=== PATIENT | male | born 1970 | race Caucasian/White ===

== ENCOUNTER 2018-04-08 04:04 | Emergency (ER) | payer MEDICAID ==
[~2018-04-08] VITALS: Ht 165.1 cm; Wt 70.5 kg
[~2018-04-08 04:04] MED LIST: CETI10TA18 PO; HYDR-4383 PO
[2018-04-08] MEDS ORDERED: metoclopramide 5 mg/ml inj IV ONE (04:30)
[2018-04-08] MEDS ORDERED: diphenhydrAMINE 50 mg/ml inj IV ONE (04:30)
[2018-04-08] MEDS ORDERED: normal saline 1000ml 1,000 ML IV ONE (04:30)
[2018-04-08] MEDS ORDERED: ketorolac trometh. 30mg/ml inj. IV ONE (04:30)
[2018-04-08] MEDS ORDERED: acetaminophen 325mg tablet PO ONE (04:35)
[2018-04-08 05:37] VITALS: BP 119/76
[2018-04-08] MEDS ORDERED: TAM75C PO (05:50)
== END 2018-04-08 06:17 | disposition home or self-care (01) ==
LOC: ER 04:04
DX: J11.1 Influenza due to unidentified influenza virus with other respiratory manifestations (principal); R11.0 Nausea; R00.0 Tachycardia, unspecified; I10 Essential (primary) hypertension; F12.90 Cannabis use, unspecified, uncomplicated; F17.200 Nicotine dependence, unspecified, uncomplicated; Z88.8 Allergy status to other drugs, medicaments and biological substances; Z88.2 Allergy status to sulfonamides
CPT/HCPCS: 71045; 87502; 87503; 96374; 96375; 99285; J1200; J1885; J2765; J7030

== ENCOUNTER 2018-04-11 20:52 | Emergency (ER) | payer MEDICAID ==
[~2018-04-11] VITALS: Ht 165.1 cm; Wt 63.6 kg
[~2018-04-11 20:52] MED LIST changes: -CETI10TA18 PO; -HYDR-4383 PO; +TAM75C PO
[2018-04-11] MEDS ORDERED: predniSONE 20 mg tablet PO ONE (21:10)
[2018-04-11] MEDS ORDERED: ipratropium/albuterol 3ml nebule NEB ONE (21:10)
[2018-04-11] MEDS ORDERED: PRED10TA23 PO (21:12)
[2018-04-11] MEDS ORDERED: ALBU8.5H8 IH (21:12)
[2018-04-11] MEDS ORDERED: INHA1EAC68 MC (21:12)
[2018-04-11 21:59] VITALS: BP 129/92
== END 2018-04-11 22:00 | disposition home or self-care (01) ==
LOC: ER 20:53
DX: J40 Bronchitis, not specified as acute or chronic (principal); I10 Essential (primary) hypertension; F12.90 Cannabis use, unspecified, uncomplicated; Z79.2 Long term (current) use of antibiotics; Z79.899 Other long term (current) drug therapy
CPT/HCPCS: 93005; 94640; 94760; 99283; J7512

== ENCOUNTER 2018-07-11 08:16 | Emergency (ER) | payer MEDICAID ==
[~2018-07-11] VITALS: Ht 165.1 cm; Wt 70.5 kg
[~2018-07-11 08:16] MED LIST changes: +ALBU8.5H8 IH; +INHA1EAC68 MC; -TAM75C PO
[2018-07-11] MEDS ORDERED: ondansetron/PF 4mg/2ml inj IV ONE (09:00)
[2018-07-11] MEDS ORDERED: morphine 4 MG/ML inj SYRINge IV ONE (09:00)
[2018-07-11 09:32] LABS: CLARITY,URINE CLEAR (Clear); COLOR,URINE STRAW (Yellow); GLUCOSE, URINE NEGATIVE (Neg); KETONES,URINE NEGATIVE (Neg); LEUKOCYTE ESTERASE ,URINE NEGATIVE (Neg); NITRITES, URINE NEGATIVE (Neg); OCCULT BLOOD,URINE NEGATIVE (Neg); PH,URINE 6.5 (4.8-8.0); PROTEIN,URINE NEGATIVE (Neg); UROBILINOGEN,URINE 0.2 E.U/dL (0.2-1.0)
[2018-07-11 09:34] LABS: UA COLLECTION TYPE CLN CATCH MIDSTREAM
[2018-07-11 09:34] LABS: BASOPHILS % (AUTO) 0.6 % (0-1); EOSINOPHILS # (AUTO) 0.2 X10'3 (0-0.9); EOSINOPHILS % (AUTO) 3.7 % (0-6); HEMATOCRIT 46.1 % (42.0-52.0); HEMOGLOBIN 15.6 g/dl (14.0-17.9); LYMPHOCYTES # (AUTO) 1.5 X10'3 (1.1-4.8); LYMPHOCYTES % (AUTO) 22.6 % (21-51); MEAN CORPUSCULAR HEMOGLOBIN 30.5 PG (27.0-31.0); MEAN CORPUSCULAR HGB CONC 33.8 g/dL (33.0-36.5); MEAN CORPUSCULAR VOLUME 90.2 FL (78-98); MEAN PLATELET VOLUME 7.6 FL (7.4-10.4); MONOCYTES # (AUTO) 0.4 X10'3 (0-0.9); MONOCYTES % (AUTO) 6.2 % (2-12); NEUTROPHILS # (AUTO) 4.5 X10'3 (1.8-7.7); NEUTROPHILS % (AUTO) 66.9 % (42-75); PLATELET COUNT 288 X10'3 (140-440); RED BLOOD COUNT 5.11 X10'6 (4.70-6.10); RED CELL DISTRIBUTION WIDTH 12.5 % (11.5-14.5); WHITE BLOOD COUNT 6.6 X10'3 (4.5-11.0)
[2018-07-11 09:45] LABS: ALANINE AMINOTRANSFERASE 62 U/L (12-78); ALBUMIN 3.8 G/DL (3.4-5.0); ALBUMIN/GLOBULIN RATIO 1.1 (1.1-1.5); ALKALINE PHOSPHATASE 55 IU/L (46-116); ANION GAP 12 (8-16); ASPARTATE AMINO TRANSFERASE 26 U/L (10-37); BILIRUBIN,TOTAL 0.5 MG/DL (0.1-1.0); BLOOD UREA NITROGEN 12 MG/DL (7-18); BUN/CREATININE RATIO 14.3 (5.4-32.0); CALCIUM 8.9 MG/DL (8.5-10.1); CHLORIDE 103 MMOL/L (99-107); CREATININE 0.84 MG/DL (0.60-1.10); GLUCOSE 98 MG/DL (70-104); MAGNESIUM 1.8 MG/DL (1.5-2.4); PARTIAL THROMBOPLASTIN TIME 28 SECONDS (22-32); PROTHROMBIN TIME 9.9 SECONDS (9.0-12.0); SODIUM 140 MMOL/L (135-145); TOTAL CARBON DIOXIDE 24.9 MMOL/L (24-32); TOTAL PROTEIN 7.2 G/DL (6.4-8.2); eGFR > 90 ML/MIN
[2018-07-11] MEDS ORDERED: BUDE9TAB2 PO (11:40)
[2018-07-11 11:53] VITALS: BP 98/60
[2018-07-12] MEDS ORDERED: HYDR-3965 PO (00:46)
[2018-07-12] MEDS ORDERED: DICY10CA88 PO (00:46)
[2018-07-12] MEDS ORDERED: AMOX-580 PO (00:46)
== END 2018-07-11 11:57 | disposition home or self-care (01) ==
LOC: ER 08:17
DX: K52.9 Noninfective gastroenteritis and colitis, unspecified (principal); K62.5 Hemorrhage of anus and rectum; I10 Essential (primary) hypertension
CPT/HCPCS: 36415; 80053; 81003; 83605; 83735; 84145; 85025; 85610; 85730; 87040; 96374; 96375; 99283; J2270; J2405

== ENCOUNTER 2018-07-11 21:08 | Emergency (ER) | payer MEDICAID ==
[~2018-07-11] VITALS: Ht 165.1 cm; Wt 75.3 kg
[~2018-07-11 21:08] MED LIST changes: +BUDE9TAB2 PO
[2018-07-11] MEDS ORDERED: diphenhydrAMINE 50 mg/ml inj IV ONE (23:00)
[2018-07-11] MEDS ORDERED: metoclopramide 5 mg/ml inj IV ONE (23:00)
[2018-07-11] MEDS ORDERED: normal saline 1000ML IV soln IVB ONE ×2 (23:00)
[2018-07-11] MEDS ORDERED: HYDROmorphone inj. 0.5 MG/0.5 ML DISP.SYRIN IV PRN (23:00)
[2018-07-11] MEDS ORDERED: LORazepam 2 mg/ml vial IV ONE (23:00)
[2018-07-11] MEDS ORDERED: glycopyrrolate 0.2mg/ml inj IV ONE (23:05)
[2018-07-11 23:31] LABS: ALANINE AMINOTRANSFERASE 89 U/L (12-78); ALBUMIN 3.5 G/DL (3.4-5.0); ALKALINE PHOSPHATASE 56 IU/L (46-116); ANION GAP 9 (8-16); ASPARTATE AMINO TRANSFERASE 49 U/L (10-37); BILIRUBIN,TOTAL 0.3 MG/DL (0.1-1.0); BLOOD UREA NITROGEN 20 MG/DL (7-18); BUN/CREATININE RATIO 19.8 (5.4-32.0); CHLORIDE 102 MMOL/L (99-107); CREATININE 1.01 MG/DL (0.60-1.10); GLUCOSE 154 MG/DL (70-104); LIPASE 197 U/L (73-393); POTASSIUM 4.2 MMOL/L (3.5-5.1); SODIUM 138 MMOL/L (135-145); TOTAL PROTEIN 6.9 G/DL (6.4-8.2); eGFR 79 ML/MIN
[2018-07-11 23:46] LABS: BASOPHILS % (AUTO) 0.1 % (0-1); EOSINOPHILS % (AUTO) 0.1 % (0-6); HEMOGLOBIN 14.1 g/dl (14.0-17.9); LYMPHOCYTES % (AUTO) 13.2 % (21-51); MEAN CORPUSCULAR HEMOGLOBIN 29.9 PG (27.0-31.0); MEAN CORPUSCULAR HGB CONC 33.5 g/dL (33.0-36.5); MEAN CORPUSCULAR VOLUME 89.4 FL (78-98); MEAN PLATELET VOLUME 8.2 FL (7.4-10.4); MONOCYTES # (AUTO) 0.3 X10'3 (0-0.9); MONOCYTES % (AUTO) 4.2 % (2-12); NEUTROPHILS % (AUTO) 82.4 % (42-75); PLATELET COUNT 266 X10'3 (140-440); RED CELL DISTRIBUTION WIDTH 12.3 % (11.5-14.5); WHITE BLOOD COUNT 7.3 X10'3 (4.5-11.0)
[2018-07-12] MEDS ORDERED: AMOX-580 PO (00:46)
[2018-07-12] MEDS ORDERED: DICY10CA88 PO (00:46)
[2018-07-12] MEDS ORDERED: HYDR-3965 PO (00:46)
[2018-07-12 01:13] VITALS: BP 103/53
== END 2018-07-12 01:21 | disposition home or self-care (01) ==
LOC: ER 21:09
DX: R10.32 Left lower quadrant pain (principal); I10 Essential (primary) hypertension; F12.90 Cannabis use, unspecified, uncomplicated; Z79.899 Other long term (current) drug therapy
CPT/HCPCS: 36415; 74176; 80053; 83690; 84145; 85025; 96374; 96375; 99284; J1170; J1200; J2060; J2765; J7030; J3490

== ENCOUNTER 2018-12-24 06:26 | Emergency (ER) | payer MEDICAID ==
[~2018-12-24] VITALS: Ht 162.6 cm; Wt 72.7 kg
[~2018-12-24 06:26] MED LIST changes: +IBUP-1986 PO; +ORPH100T2 PO
[2018-12-24] MEDS ORDERED: ketorolac trometh inj. 60 MG/2 ML VIAL IM ONE (06:50)
[2018-12-24] MEDS ORDERED: HYDROcodone/acetaminophen 5mg/325mg tablet PO ONE (06:50)
[2018-12-24] MEDS ORDERED: diazepam 5mg tablet PO ONE (06:50)
[2018-12-24] MEDS ORDERED: HYDR-3965 PO (07:01)
[2018-12-24] MEDS ORDERED: IBUP-1984 PO (07:01)
[2018-12-24] MEDS ORDERED: CYCL-1 PO (07:01)
[2018-12-24 07:09] VITALS: BP 137/89
== END 2018-12-24 07:16 | disposition home or self-care (01) ==
LOC: ER 06:27
DX: M54.5 Low back pain (principal); G89.29 Other chronic pain; M62.830 Muscle spasm of back; I10 Essential (primary) hypertension; F32.9 Major depressive disorder, single episode, unspecified; F12.90 Cannabis use, unspecified, uncomplicated; Z87.11 Personal history of peptic ulcer disease; Z79.899 Other long term (current) drug therapy; Z79.1 Long term (current) use of non-steroidal anti-inflammatories (NSAID)
CPT/HCPCS: 96372; 99283; J1885

== ENCOUNTER 2019-01-02 10:06 | Emergency (ER) | payer MEDICAID ==
[~2019-01-02] VITALS: Ht 165.1 cm; Wt 72.7 kg
[~2019-01-02 10:06] MED LIST changes: +CYCL-1 PO
[2019-01-02] MEDS ORDERED: TETanus/Pertussis (Acell)/Diphther VAC/PF (Tdap-Adult) 0.5ml syringe IM ONE (10:55)
[2019-01-02] MEDS ORDERED: erythromycin ophthalmic ointment 1gm tube RIGHTEYE ONE (10:55)
[2019-01-02] MEDS ORDERED: ondansetron 4mg rapidly disintigrating tab PO ONE (11:00)
[2019-01-02] MEDS ORDERED: amox tr/potassium clavulanate 875/125mg TAB PO ONE (11:00)
[2019-01-02] MEDS ORDERED: BACI3.5O5 TOP (11:37)
[2019-01-02] MEDS ORDERED: AMOX-419 PO (11:37)
[2019-01-02 11:48] VITALS: BP 136/86
== END 2019-01-02 11:50 | disposition home or self-care (01) ==
LOC: ER 10:07
DX: H01.003 Unspecified blepharitis right eye, unspecified eyelid (principal); I10 Essential (primary) hypertension; G89.29 Other chronic pain; F32.9 Major depressive disorder, single episode, unspecified; F12.90 Cannabis use, unspecified, uncomplicated; F10.99 Alcohol use, unspecified with unspecified alcohol-induced disorder; Z79.899 Other long term (current) drug therapy; Y90.9 Presence of alcohol in blood, level not specified
CPT/HCPCS: 90471; 90715; 99284; J2405

== ENCOUNTER 2020-01-11 10:15 | Emergency (ER) | payer MEDICAID ==
[~2020-01-11] VITALS: Ht 160 cm; Wt 72.7 kg
[~2020-01-11 10:15] MED LIST changes: +BACI3.5O5 TOP
[2020-01-11] MEDS ORDERED: ketorolac tromethamine 15mg/ml inj. IV ONE (10:35)
[2020-01-11] MEDS ORDERED: BUPIVAcaine/PF 7.5mg/ml (0.75%) 10ml vial IJ ONE (10:35)
[2020-01-11 11:44] VITALS: BP 114/82
== END 2020-01-11 11:50 | disposition home or self-care (01) ==
LOC: ER 10:15
DX: S39.012A Strain of muscle, fascia and tendon of lower back, initial encounter (principal); G89.29 Other chronic pain; R11.10 Vomiting, unspecified; I10 Essential (primary) hypertension; F32.9 Major depressive disorder, single episode, unspecified; F12.90 Cannabis use, unspecified, uncomplicated; Z72.89 Other problems related to lifestyle; Z79.2 Long term (current) use of antibiotics; Z79.899 Other long term (current) drug therapy; X58.XXXA Exposure to other specified factors, initial encounter; Y93.01 Activity, walking, marching and hiking; Y92.89 Other specified places as the place of occurrence of the external cause; Y99.8 Other external cause status
CPT/HCPCS: 96374; 99284; J1885

== ENCOUNTER 2020-03-14 23:30 | Emergency (ER) | payer MEDICAID ==
[~2020-03-14] VITALS: Ht 165.1 cm; Wt 70.5 kg
[2020-03-14] MEDS ORDERED: morphine 4 MG/ML inj SYRINge IV ONE (23:50)
[2020-03-14] MEDS ORDERED: ondansetron/PF 4mg/2ml inj IV ONE (23:50)
[2020-03-14] MEDS ORDERED: normal saline 1000ml 1,000 ML IV ONE (23:55)
[2020-03-14] MEDS ORDERED: ketorolac trometh. 30mg/ml inj. IV ONE (23:55)
[2020-03-14 23:58] LABS: BASOPHILS # (AUTO) 0.1 X10'3 (0-0.2); BASOPHILS % (AUTO) 0.8 % (0-1); EOSINOPHILS # (AUTO) 0.3 X10'3 (0-0.9); EOSINOPHILS % (AUTO) 2.2 % (0-6); HEMATOCRIT 48.1 % (42.0-52.0); HEMOGLOBIN 16.5 g/dl (14.0-17.9); LYMPHOCYTES # (AUTO) 2.2 X10'3 (1.1-4.8); LYMPHOCYTES % (AUTO) 19.5 % (21-51); MEAN CORPUSCULAR HEMOGLOBIN 30.4 PG (27.0-31.0); MEAN CORPUSCULAR HGB CONC 34.3 g/dL (33.0-36.5); MEAN CORPUSCULAR VOLUME 88.7 FL (78-98); MEAN PLATELET VOLUME 7.5 FL (7.4-10.4); MONOCYTES # (AUTO) 1.1 X10'3 (0-0.9); MONOCYTES % (AUTO) 9.4 % (2-12); NEUTROPHILS # (AUTO) 7.7 X10'3 (1.8-7.7); NEUTROPHILS % (AUTO) 68.1 % (42-75); PLATELET COUNT 303 X10'3 (140-440); RED BLOOD COUNT 5.42 X10'6 (4.70-6.10); RED CELL DISTRIBUTION WIDTH 13.1 % (11.5-14.5); WHITE BLOOD COUNT 11.4 X10'3 (4.5-11.0)
[2020-03-15 00:16] LABS: ALANINE AMINOTRANSFERASE 122 U/L (12-78); ALBUMIN 4.3 G/DL (3.4-5.0); ALBUMIN/GLOBULIN RATIO 1.1 (1.1-1.5); ALKALINE PHOSPHATASE 67 IU/L (46-116); AMYLASE 56 U/L (25-115); ANION GAP 10 (8-16); ASPARTATE AMINO TRANSFERASE 46 U/L (10-37); BILIRUBIN,TOTAL 0.7 MG/DL (0.1-1.0); BLOOD UREA NITROGEN 18 MG/DL (7-18); CALCIUM 9.5 MG/DL (8.5-10.1); CHLORIDE 101 MMOL/L (99-107); GLUCOSE 113 MG/DL (70-104); LIPASE 157 U/L (73-393); POTASSIUM 3.9 MMOL/L (3.5-5.1); SODIUM 137 MMOL/L (135-145); TOTAL CARBON DIOXIDE 26.5 MMOL/L (24-32); TOTAL PROTEIN 8.3 G/DL (6.4-8.2); eGFR 79 ML/MIN
--- NOTE | 2020-03-15 00:32 | NUR ---
pt stated he could void if he had water
--- NOTE | 2020-03-15 00:34 | NUR ---
praneeth [phone]
[2020-03-15 01:23] LABS: CLARITY,URINE CLEAR (Clear); COLOR,URINE YELLOW (Yellow); GLUCOSE, URINE NEGATIVE (Neg); KETONES,URINE NEGATIVE (Neg); LEUKOCYTE ESTERASE ,URINE NEGATIVE (Neg); NITRITES, URINE NEGATIVE (Neg); OCCULT BLOOD,URINE LARGE (Neg); PH,URINE 5.5 (4.8-8.0); PROTEIN,URINE 30 mg/dl (Neg); UROBILINOGEN,URINE 0.2 E.U/dL (0.2-1.0)
[2020-03-15 01:25] LABS: UA COLLECTION TYPE CLN CATCH MIDSTREAM
[2020-03-15] MEDS ORDERED: ONDA4TAB6 PO (01:31)
[2020-03-15] MEDS ORDERED: HYDR-3965 PO (01:31)
[2020-03-15 01:44] LABS: BACTERIA,URINE FEW /HPF (Neg); WBC,URINE 0-4 /HPF (0-4)
[2020-03-15 01:45] LABS: SQUAMOUS EPITHELIAL CELL,UR FEW /LPF (FEW)
[2020-03-15 01:48] VITALS: BP 117/80
== END 2020-03-15 01:50 | disposition home or self-care (01) ==
LOC: ER 23:31
DX: R10.31 Right lower quadrant pain (principal); I10 Essential (primary) hypertension; G89.29 Other chronic pain; F12.90 Cannabis use, unspecified, uncomplicated; Z79.899 Other long term (current) drug therapy
CPT/HCPCS: 36415; 74176; 80053; 81001; 82150; 83690; 85025; 96361; 96374; 96375; 99284; J1885; J2270; J2405; J7030

== ENCOUNTER 2020-11-20 20:41 | Inpatient (IN) | payer MEDICAID ==
[~2020-11-20] VITALS: Ht 165.1 cm; Wt 73.1 kg
[~2020-11-20 20:41] MED LIST changes: +ONDA4TAB6 PO
[2020-11-20 21:44] LABS: BASOPHILS # (AUTO) 0.1 X10'3 (0-0.2); BASOPHILS % (AUTO) 0.8 % (0-1); EOSINOPHILS # (AUTO) 0.3 X10'3 (0-0.9); EOSINOPHILS % (AUTO) 4.2 % (0-6); HEMATOCRIT 43.6 % (42.0-52.0); HEMOGLOBIN 14.9 g/dl (14.0-17.9); LYMPHOCYTES # (AUTO) 2.7 X10'3 (1.1-4.8); LYMPHOCYTES % (AUTO) 34.9 % (21-51); MEAN CORPUSCULAR HEMOGLOBIN 30.1 PG (27.0-31.0); MEAN CORPUSCULAR HGB CONC 34.2 g/dL (33.0-36.5); MEAN PLATELET VOLUME 7.5 FL (7.4-10.4); MONOCYTES # (AUTO) 0.7 X10'3 (0-0.9); MONOCYTES % (AUTO) 8.6 % (2-12); NEUTROPHILS % (AUTO) 51.5 % (42-75); PLATELET COUNT 283 X10'3 (140-440); RED BLOOD COUNT 4.95 X10'6 (4.70-6.10); RED CELL DISTRIBUTION WIDTH 13.2 % (11.5-14.5); WHITE BLOOD COUNT 7.7 X10'3 (4.5-11.0)
[2020-11-20 21:54] LABS: ALANINE AMINOTRANSFERASE 238 U/L (12-78); ALBUMIN 3.9 G/DL (3.4-5.0); ALBUMIN/GLOBULIN RATIO 1.1 (1.1-1.5); ALKALINE PHOSPHATASE 73 IU/L (46-116); ANION GAP 8 (8-16); ASPARTATE AMINO TRANSFERASE 75 U/L (10-37); BILIRUBIN,TOTAL 0.7 MG/DL (0.1-1.0); BLOOD UREA NITROGEN 18 MG/DL (7-18); BUN/CREATININE RATIO 14.3 (5.4-32.0); CALCIUM 8.5 MG/DL (8.5-10.1); CHLORIDE 104 MMOL/L (99-107); CREATININE 1.26 MG/DL (0.60-1.10); GLUCOSE 104 MG/DL (70-104); LIPASE 169 U/L (73-393); POTASSIUM 3.5 MMOL/L (3.5-5.1); SODIUM 143 MMOL/L (135-145); TOTAL CARBON DIOXIDE 31.1 MMOL/L (24-32); TOTAL PROTEIN 7.4 G/DL (6.4-8.2); eGFR 61 ML/MIN
[2020-11-20 22:38] LABS: COLOR,URINE YELLOW (Yellow); GLUCOSE, URINE NEGATIVE (Neg); KETONES,URINE NEGATIVE (Neg); LEUKOCYTE ESTERASE ,URINE NEGATIVE (Neg); NITRITES, URINE NEGATIVE (Neg); OCCULT BLOOD,URINE LARGE (Neg); PH,URINE 5.5 (4.8-8.0); PROTEIN,URINE TRACE mg/dl (Neg); UROBILINOGEN,URINE 0.2 E.U/dL (0.2-1.0)
[2020-11-20 22:40] LABS: UA COLLECTION TYPE CLN CATCH MIDSTREAM
[2020-11-20 22:41] LABS: CLARITY,URINE SLIGHTLY CLOUDY (Clear)
[2020-11-20 22:53] LABS: BACTERIA,URINE NONE SEEN /HPF (Neg); WBC,URINE 0-4 /HPF (0-4)
[2020-11-20 22:54] LABS: SQUAMOUS EPITHELIAL CELL,UR FEW /LPF (FEW)
[2020-11-21] MEDS ORDERED: ketorolac tromethamine 15mg/ml inj. IV ONE (00:35)
[2020-11-21] MEDS ORDERED: ondansetron/PF 4mg/2ml inj IV ONE (00:35)
[2020-11-21] MEDS ORDERED: normal saline 1000ML IV soln IVB ONE (00:35)
[2020-11-21] MEDS: morphine 4 MG/ML inj SYRINge IV PRN ×3 (01:04→03:46)
[2020-11-21] MEDS ORDERED: MELA10TA2 PO (03:06)
[2020-11-21] MEDS ORDERED: DIPH25CA83 PO (03:06)
[2020-11-21] MEDS ORDERED: LORA10TA7 PO (03:06)
[2020-11-21] MEDS ORDERED: naloxone 0.4 mg/ml inj IV PRN (03:25)
[2020-11-21] MEDS ORDERED: CADD PCA waste documentation MC PRN (03:25)
[2020-11-21] MEDS ORDERED: amLODIPine 2.5mg tablet PO ONE (03:40)
[2020-11-21] MEDS ORDERED: albuterol 2.5 MG/3 ML nebule NEB PRN (03:40)
[2020-11-21] MEDS: Melatonin 3mg tablet PO SCH ×2 (03:46→20:51)
[2020-11-21] MEDS: normal saline 1000ml 1,000 ML IV SCH ×3 (03:47→23:25)
[2020-11-21] MEDS: HYDROmorph./NS 0.2 mg/ml CADD 100 ML IV SCH ×10 (05:08→23:00)
--- NOTE | 2020-11-21 07:30 | NUR ---
Patient in room [facility]. I have received report from Annie LUTHER RN and had the opportunity to ask questions and assume patient care.
[2020-11-21] MEDS: ondansetron/PF 4mg/2ml inj IV PRN ×3 (07:58→20:58)
[2020-11-21 08:00] VITALS: BP 121/83
[2020-11-21 12:00] VITALS: BP 119/92
--- NOTE | 2020-11-21 13:24 | NUR ---
Dr Ruiz phoned to inquire of pt. stated she plans to take pt to OR in the am and pt may eat today, however if s/sx of sepsis occur notify her immediately. She will be in to speak w/ pt later this afternoon/evening. Pt and aware. Pt stated he wanted to try eating but then c/o nausea prior to tray and requested Zofran.
[2020-11-21 18:00] VITALS: BP 130/66
--- NOTE | 2020-11-21 18:26 | NUR ---
Problems reprioritized. Patient report given, questions answered & plan of care reviewed with Maile GANNON. Addendum: 11/21/20 at 1830 by Niharika Ko RN Report given to Nilda Gr RN
--- NOTE | 2020-11-21 18:56 | NUR ---
Patient in room [facility]. I have received report from TERESSA Bundy and had the opportunity to ask questions and assume patient care.
[2020-11-21] MEDS: tamsulosin 0.4mg capsule PO SCH (20:51)
[2020-11-22] VITALS (19 sets, daily range): BP systolic 101–161; BP diastolic 65–91
[2020-11-22] MEDS: HYDROmorph./NS 0.2 mg/ml CADD 100 ML IV SCH ×12 (01:00→23:00)
[2020-11-22] MEDS: normal saline 1000ml 1,000 ML IV SCH ×2 (01:19→11:21)
[2020-11-22 06:06] LABS: BASOPHILS % (AUTO) 0.4 % (0-1); EOSINOPHILS # (AUTO) 0.1 X10'3 (0-0.9); EOSINOPHILS % (AUTO) 1.5 % (0-6); HEMATOCRIT 42.2 % (42.0-52.0); LYMPHOCYTES # (AUTO) 1.8 X10'3 (1.1-4.8); LYMPHOCYTES % (AUTO) 24.1 % (21-51); MEAN CORPUSCULAR HEMOGLOBIN 29.6 PG (27.0-31.0); MEAN CORPUSCULAR HGB CONC 33.1 g/dL (33.0-36.5); MEAN CORPUSCULAR VOLUME 89.4 FL (78-98); MEAN PLATELET VOLUME 8.4 FL (7.4-10.4); MONOCYTES # (AUTO) 0.6 X10'3 (0-0.9); MONOCYTES % (AUTO) 7.6 % (2-12); NEUTROPHILS % (AUTO) 66.4 % (42-75); PLATELET COUNT 253 X10'3 (140-440); RED BLOOD COUNT 4.72 X10'6 (4.70-6.10); WHITE BLOOD COUNT 7.5 X10'3 (4.5-11.0)
[2020-11-22 06:28] LABS: ALANINE AMINOTRANSFERASE 176 U/L (12-78); ALBUMIN 3.1 G/DL (3.4-5.0); ALKALINE PHOSPHATASE 51 IU/L (46-116); ANION GAP 6 (8-16); ASPARTATE AMINO TRANSFERASE 44 U/L (10-37); BILIRUBIN,TOTAL 0.9 MG/DL (0.1-1.0); BLOOD UREA NITROGEN 11 MG/DL (7-18); BUN/CREATININE RATIO 13.9 (5.4-32.0); CALCIUM 7.9 MG/DL (8.5-10.1); CHLORIDE 106 MMOL/L (99-107); CREATININE 0.79 MG/DL (0.60-1.10); GLUCOSE 100 MG/DL (70-104); POTASSIUM 3.7 MMOL/L (3.5-5.1); SODIUM 138 MMOL/L (135-145); TOTAL CARBON DIOXIDE 25.6 MMOL/L (24-32); TOTAL PROTEIN 6.3 G/DL (6.4-8.2); eGFR > 90 ML/MIN
--- NOTE | 2020-11-22 06:32 | NUR ---
Problems reprioritized. Patient report given, questions answered & plan of care reviewed with TERESSA Ernst.
--- NOTE | 2020-11-22 07:11 | NUR ---
Patient in room [facility]. I have received report from Nilda GANNON and had the opportunity to ask questions and assume patient care.
[2020-11-22] MEDS ORDERED: normal saline 1000ml 1,000 ML IV ONE (09:25)
[2020-11-22] MEDS: ondansetron/PF 4mg/2ml inj IV PRN (11:21)
[2020-11-22] MEDS ORDERED: ondansetron/PF 4mg/2ml inj IV PRN (12:50)
[2020-11-22] MEDS ORDERED: proCHLORperazine 10 MG/2 ml inj IV PRN (12:50)
[2020-11-22] MEDS ORDERED: meperidine/PF 25mg/ml syringe IV PRN ×3 (12:50)
[2020-11-22] MEDS ORDERED: ringers solution, lacted 1,000 ML IV SCH (12:50)
[2020-11-22] MEDS ORDERED: morphine 4 MG/ML inj SYRINge IV PRN (12:50)
[2020-11-22] MEDS ORDERED: morphine 2 MG/ML inj. syringe IV PRN (12:50)
[2020-11-22] MEDS ORDERED: midazolam 1 mg/ML 2ml injection ONE (15:03)
[2020-11-22] MEDS ORDERED: fentaNYL/PF 50MCG/1 ML 2ML syringe ONE ×2 (15:03→15:35)
[2020-11-22] MEDS ORDERED: propofol inj 20 ML IV ONE (15:04)
[2020-11-22] MEDS ORDERED: ceFAZolin 1000mg inj ONE ×2 (15:25)
[2020-11-22] MEDS ORDERED: iohexol 300 MG/1 ML 10ml vial ONE ×2 (15:29→15:43)
--- NOTE | 2020-11-22 16:49 | NUR ---
Received from OR via , accompanied by Anesthesiologist DR LUX and report given by Anesthesiolgist. PT PRESENTS WITH 18 G LEFT FOREARM, VSS. Addendum: 11/22/20 at 1657 by Harleen Fonseca RN, RN Amended: Links added.
--- NOTE | 2020-11-22 17:39 | NUR ---
PT UP OUT OF BED AND AMBULATED TO THE BATHROOM WITH 1 PERSON ASSIST. PT WAS ABLE TO URINATE. Addendum: 11/22/20 at 1740 by Harleen Fonseca RN, RN Amended: Links added.
--- NOTE | 2020-11-22 17:47 | NUR ---
PACU DISCHARGE CRITERIA MET, REPORT GIVEN TO FLOOR SURG EDIN PEOPLES RN. DENIES PAIN OR DISCOMFORT. PT IS STABLE AND ADEQUATELY RECOVERED FROM ANESTHESIA. PT HAS STABLE AIRWAY PATENCY, RESPIRATORY FUNCTION TO INCLUDE RESPIRATORY RATE AND O2 SAT. HEART RATE, BLOOD PRESSURE STABLE AND HYDRATION ADEQUATE. MENTAL STATUS IS APPROPRIATE. PAIN AND NAUSEA CONTROLLED. REFER TO PACU SPREADSHEET FOR VITAL SIGNS. Addendum: 11/22/20 at 1752 by Harleen Fonseca RN, RN Amended: Links added.
[2020-11-22] MEDS ORDERED: phenazopyridine 100mg tablet PO PRN (18:35)
[2020-11-22] MEDS ORDERED: oxybutynin 5mg tablet PO PRN (18:35)
[2020-11-22] MEDS ORDERED: ketorolac tromethamine 15mg/ml inj. IV ONE (18:35)
--- NOTE | 2020-11-22 18:36 | NUR ---
Patient still very painful is on a dilaudid [facility] Standard settings. Received orders from Dr Ruiz for Toradol 15mg IV x1, Oxybutin 5mg PO TID for spasms, Pyridium 200mg PO TID.
--- NOTE | 2020-11-22 18:38 | NUR ---
Patient in room [facility]. I have received report from TERESSA Ernst and had the opportunity to ask questions and assume patient care.
--- NOTE | 2020-11-22 18:51 | NUR ---
Problems reprioritized. Patient report given, questions answered & plan of care reviewed with Nilda GANNON.
[2020-11-22] MEDS: tamsulosin 0.4mg capsule PO SCH (22:17)
[2020-11-22] MEDS: Melatonin 3mg tablet PO SCH (22:17)
[2020-11-23] VITALS: BP 123/74
[2020-11-23] MEDS: ceFAZolin/D5W- 1GM premix 50 ML IV SCH ×4 (00:07→23:21)
[2020-11-23] MEDS: normal saline 1000ml 1,000 ML IV SCH ×3 (00:08→21:27)
[2020-11-23] MEDS: HYDROmorph./NS 0.2 mg/ml CADD 100 ML IV SCH ×6 (01:00→11:00)
[2020-11-23 06:57] LABS: BASOPHILS % (AUTO) 0.4 % (0-1); EOSINOPHILS # (AUTO) 0.1 X10'3 (0-0.9); EOSINOPHILS % (AUTO) 1.2 % (0-6); HEMATOCRIT 41.7 % (42.0-52.0); LYMPHOCYTES # (AUTO) 1.7 X10'3 (1.1-4.8); LYMPHOCYTES % (AUTO) 24.6 % (21-51); MEAN CORPUSCULAR HEMOGLOBIN 29.6 PG (27.0-31.0); MEAN CORPUSCULAR HGB CONC 33.6 g/dL (33.0-36.5); MEAN CORPUSCULAR VOLUME 88.1 FL (78-98); MEAN PLATELET VOLUME 7.9 FL (7.4-10.4); MONOCYTES # (AUTO) 0.5 X10'3 (0-0.9); MONOCYTES % (AUTO) 7.5 % (2-12); NEUTROPHILS # (AUTO) 4.7 X10'3 (1.8-7.7); NEUTROPHILS % (AUTO) 66.3 % (42-75); PLATELET COUNT 247 X10'3 (140-440); RED BLOOD COUNT 4.73 X10'6 (4.70-6.10); RED CELL DISTRIBUTION WIDTH 12.7 % (11.5-14.5)
[2020-11-23 07:00] VITALS: BP 113/79
[2020-11-23 07:09] LABS: ALANINE AMINOTRANSFERASE 151 U/L (12-78); ALBUMIN 3.2 G/DL (3.4-5.0); ALKALINE PHOSPHATASE 47 IU/L (46-116); ANION GAP 7 (8-16); ASPARTATE AMINO TRANSFERASE 37 U/L (10-37); BILIRUBIN,TOTAL 0.7 MG/DL (0.1-1.0); BLOOD UREA NITROGEN 9 MG/DL (7-18); BUN/CREATININE RATIO 11.5 (5.4-32.0); CALCIUM 7.8 MG/DL (8.5-10.1); CHLORIDE 106 MMOL/L (99-107); CREATININE 0.78 MG/DL (0.60-1.10); GLUCOSE 91 MG/DL (70-104); POTASSIUM 3.6 MMOL/L (3.5-5.1); SODIUM 140 MMOL/L (135-145); TOTAL PROTEIN 6.3 G/DL (6.4-8.2); eGFR > 90 ML/MIN
[2020-11-23 11:00] VITALS: BP 126/78
[2020-11-23 11:20] LABS: LIPASE 111 U/L (73-393)
[2020-11-23] MEDS ORDERED: HYDROmorphone inj. 0.5 MG/0.5 ML DISP.SYRIN IV PRN (14:05)
[2020-11-23] MEDS ORDERED: HYDROcodone/acetaminophen 5mg/325mg tablet PO PRN (14:05)
[2020-11-23] MEDS: pantoprazole 40 MG vial IV SCH (14:19)
[2020-11-23] MEDS: HYDROcodone/acetaminophen 10/325mg tab PO PRN ×2 (18:55→23:21)
--- NOTE | 2020-11-23 19:18 | NUR ---
Report given to Rosina Almaguer RN, all questions answered. Patient is more painful, Rosina Almageur will monitor. I have given an increased dose of norco at this time to try to get better pain control. Rosina Almaguer will monitor to see if patient may need to go back to cadd or different pain management system.
[2020-11-23 20:00] VITALS: BP 123/53
[2020-11-23] MEDS: docusate sod 100mg capsule PO SCH (20:39)
[2020-11-23] MEDS: tamsulosin 0.4mg capsule PO SCH (20:40)
[2020-11-23] MEDS: polyethylene glycol 3350 17gm powd pack PO SCH (20:40)
[2020-11-23] MEDS: Melatonin 3mg tablet PO SCH (20:40)
[2020-11-23] MEDS: HYDROmorphone inj. 0.5 MG/0.5 ML DISP.SYRIN IV PRN (20:42)
[2020-11-24] VITALS: BP 115/75
[2020-11-24] MEDS: HYDROmorphone inj. 0.5 MG/0.5 ML DISP.SYRIN IV PRN ×3 (02:24→11:22)
--- NOTE | 2020-11-24 06:30 | NUR ---
Problems reprioritized. Patient report given, questions answered & plan of care reviewed with RICARDO GANNON.
[2020-11-24 06:41] LABS: BASOPHILS % (AUTO) 0.5 % (0-1); EOSINOPHILS # (AUTO) 0.1 X10'3 (0-0.9); EOSINOPHILS % (AUTO) 2.3 % (0-6); HEMATOCRIT 44.6 % (42.0-52.0); HEMOGLOBIN 15.1 g/dl (14.0-17.9); LYMPHOCYTES # (AUTO) 2.1 X10'3 (1.1-4.8); LYMPHOCYTES % (AUTO) 35.7 % (21-51); MEAN CORPUSCULAR VOLUME 88.4 FL (78-98); MONOCYTES # (AUTO) 0.5 X10'3 (0-0.9); MONOCYTES % (AUTO) 9.2 % (2-12); NEUTROPHILS # (AUTO) 3.1 X10'3 (1.8-7.7); NEUTROPHILS % (AUTO) 52.3 % (42-75); PLATELET COUNT 254 X10'3 (140-440); RED BLOOD COUNT 5.04 X10'6 (4.70-6.10); RED CELL DISTRIBUTION WIDTH 13.1 % (11.5-14.5); WHITE BLOOD COUNT 5.9 X10'3 (4.5-11.0)
[2020-11-24 06:51] LABS: ALANINE AMINOTRANSFERASE 129 U/L (12-78); ALBUMIN 3.4 G/DL (3.4-5.0); ALKALINE PHOSPHATASE 49 IU/L (46-116); ANION GAP 15 (8-16); ASPARTATE AMINO TRANSFERASE 36 U/L (10-37); BILIRUBIN,TOTAL 0.9 MG/DL (0.1-1.0); BLOOD UREA NITROGEN 8 MG/DL (7-18); CHLORIDE 104 MMOL/L (99-107); GLUCOSE 84 MG/DL (70-104); POTASSIUM 3.1 MMOL/L (3.5-5.1); SODIUM 144 MMOL/L (135-145); TOTAL CARBON DIOXIDE 25.4 MMOL/L (24-32); TOTAL PROTEIN 6.9 G/DL (6.4-8.2); eGFR > 90 ML/MIN
[2020-11-24 07:00] VITALS: BP 125/72
[2020-11-24] MEDS: docusate sod 100mg capsule PO SCH ×2 (08:00→19:33)
[2020-11-24] MEDS: normal saline 1000ml 1,000 ML IV SCH ×2 (08:26→17:25)
[2020-11-24] MEDS: pantoprazole 40 MG vial IV SCH (08:49)
[2020-11-24] MEDS: ceFAZolin/D5W- 1GM premix 50 ML IV SCH ×2 (08:50→16:29)
--- NOTE | 2020-11-24 11:05 | NUR ---
PAGER ID: [phone] MESSAGE: [id number] Vicky SANDERS: ABDOMINAL ULTRASOUND IS DONE. PATIENT WANTS TO KNOW IF HE CAN EAT. THANK YOU! Addendum: 11/24/20 at 1107 by Mercedes Bone RN PHONE CALL BACK FROM DR. WEEMS. INFORMED HER THAT PATIENT IS WANTING TO KNOW THE RESULTS OF HIS ABDOMINAL ULTRASOUND. SHE SAID TO CALL DR ALVAREZ FOR THAT.
[2020-11-24] MEDS ORDERED: LIDOcaine 2% 10ml TOPICAL JELLY (Urojet) MM ONE (11:40)
--- NOTE | 2020-11-24 11:46 | NUR ---
dr. koch at bedside
[2020-11-24] MEDS ORDERED: potassium Cl 20 mEq SR tablet PO PRN (11:50)
[2020-11-24] MEDS ORDERED: magnesium 4gm in 100ml NS 100 ML IV PRN (11:50)
[2020-11-24] MEDS ORDERED: potassium Cl 40MEQ/1/2NS 520ml 520 ML IV PRN (11:50)
[2020-11-24] MEDS ORDERED: magnesium 2GM in 50ml NS 50 ML IV PRN (11:50)
[2020-11-24] MEDS ORDERED: magnesium Cl slow-release 64mg tablet PO PRN (11:50)
[2020-11-24] MEDS ORDERED: HYDROmorphone 1 mg/ml syringe IV ONE (12:05)
[2020-11-24 12:34] VITALS: BP 158/92
[2020-11-24] MEDS: potassium Cl 20 mEq SR tablet PO PRN ×2 (14:23→21:30)
[2020-11-24] MEDS ORDERED: iohexol 300mg/ml 100ml inj. ONE (18:05)
--- NOTE | 2020-11-24 18:12 | NUR ---
Problems reprioritized. Patient report given, questions answered & plan of care reviewed with briana guerra.
--- NOTE | 2020-11-24 18:30 | NUR ---
Patient in room [facility]. I have received report from RICARDO GANNON and had the opportunity to ask questions and assume patient care.
[2020-11-24] MEDS: HYDROcodone/acetaminophen 10/325mg tab PO PRN (19:32)
[2020-11-24] MEDS: polyethylene glycol 3350 17gm powd pack PO SCH (19:33)
[2020-11-24] MEDS: tamsulosin 0.4mg capsule PO SCH (19:33)
[2020-11-24] MEDS: Melatonin 3mg tablet PO SCH (19:33)
[2020-11-24 20:00] VITALS: BP 136/85
[2020-11-24] MEDS: K and/or MAG REPLACEMENT MC SCH (20:00)
[2020-11-25] VITALS: BP 155/91
[2020-11-25] MEDS ORDERED: cetirizine 10mg tablet PO SCH
[2020-11-25] MEDS: ceFAZolin/D5W- 1GM premix 50 ML IV SCH ×2 (00:30→07:49)
[2020-11-25] MEDS: normal saline 1000ml 1,000 ML IV SCH (03:48)
--- NOTE | 2020-11-25 06:27 | NUR ---
Problems reprioritized. Patient report given, questions answered & plan of care reviewed with RICARDO GANNON.
[2020-11-25 06:42] LABS: BASOPHILS % (AUTO) 0.6 % (0-1); EOSINOPHILS # (AUTO) 0.2 X10'3 (0-0.9); EOSINOPHILS % (AUTO) 3.8 % (0-6); HEMATOCRIT 42.9 % (42.0-52.0); HEMOGLOBIN 14.8 g/dl (14.0-17.9); LYMPHOCYTES # (AUTO) 2.4 X10'3 (1.1-4.8); LYMPHOCYTES % (AUTO) 38.7 % (21-51); MEAN CORPUSCULAR HEMOGLOBIN 29.7 PG (27.0-31.0); MEAN CORPUSCULAR HGB CONC 34.6 g/dL (33.0-36.5); MEAN CORPUSCULAR VOLUME 85.9 FL (78-98); MEAN PLATELET VOLUME 7.6 FL (7.4-10.4); MONOCYTES # (AUTO) 0.6 X10'3 (0-0.9); MONOCYTES % (AUTO) 9.9 % (2-12); NEUTROPHILS # (AUTO) 2.9 X10'3 (1.8-7.7); PLATELET COUNT 264 X10'3 (140-440); RED BLOOD COUNT 4.99 X10'6 (4.70-6.10); RED CELL DISTRIBUTION WIDTH 12.9 % (11.5-14.5); WHITE BLOOD COUNT 6.3 X10'3 (4.5-11.0)
[2020-11-25 06:56] LABS: ALANINE AMINOTRANSFERASE 104 U/L (12-78); ALBUMIN 3.4 G/DL (3.4-5.0); ALKALINE PHOSPHATASE 49 IU/L (46-116); ANION GAP 10 (8-16); ASPARTATE AMINO TRANSFERASE 33 U/L (10-37); BILIRUBIN,TOTAL 0.9 MG/DL (0.1-1.0); BLOOD UREA NITROGEN 9 MG/DL (7-18); CALCIUM 8.3 MG/DL (8.5-10.1); CHLORIDE 105 MMOL/L (99-107); CREATININE 0.75 MG/DL (0.60-1.10); GLUCOSE 96 MG/DL (70-104); POTASSIUM 3.5 MMOL/L (3.5-5.1); SODIUM 141 MMOL/L (135-145); TOTAL CARBON DIOXIDE 26.3 MMOL/L (24-32); TOTAL PROTEIN 6.7 G/DL (6.4-8.2); eGFR > 90 ML/MIN
[2020-11-25 07:00] VITALS: BP 158/101
[2020-11-25] MEDS ORDERED: pantoprazole 40mg Tablet.DR PO SCH (07:30)
[2020-11-25] MEDS: docusate sod 100mg capsule PO SCH (07:48)
[2020-11-25] MEDS: K and/or MAG REPLACEMENT MC SCH (07:49)
[2020-11-25] MEDS: HYDROcodone/acetaminophen 10/325mg tab PO PRN (10:57)
[2020-11-25 12:25] VITALS: BP 134/91
--- NOTE | 2020-11-25 13:32 | NUR ---
PAGER ID: [phone] MESSAGE: caleb ottB: patient okay to DC per Joseph kevin [phone]
--- NOTE | 2020-11-25 14:20 | NUR ---
Patient stable and appropriate for discharge. IV removed, all belongings taken from room. New prescriptions given to patient. All discharge instructions and education given and reviewed with patient. all questions from patient and answered. DR. Ruiz at bedside during discharge as well.
== END 2020-11-25 14:18 | disposition home or self-care (01) | DRG 443 ==
LOC: ER 20:43 → ED HOLD 11-21 02:41 → SUR 3N 11-21 07:46
PROVIDERS: ADMIT Internal Medicine; ATTEND Internal Medicine
PROC: 0T778DZ Dilation of Left Ureter with Intraluminal Device, Via Natural or Artificial Opening Endoscopic (ICD-10-PCS; 2020-11-22)
PROC: BT1F1ZZ Fluoroscopy of Left Kidney, Ureter and Bladder using Low Osmolar Contrast (ICD-10-PCS; 2020-11-22)
PROC: 0TC18ZZ Extirpation of Matter from Left Kidney, Via Natural or Artificial Opening Endoscopic (ICD-10-PCS; principal; 2020-11-22 15:07)
PROC: 0TP98DZ Removal of Intraluminal Device from Ureter, Via Natural or Artificial Opening Endoscopic (ICD-10-PCS; 2020-11-24)
PROC: BW211ZZ Computerized Tomography (CT Scan) of Abdomen and Pelvis using Low Osmolar Contrast (ICD-10-PCS; 2020-11-24)
DX: N13.2 Hydronephrosis with renal and ureteral calculous obstruction (principal); N17.9 Acute kidney failure, unspecified; I10 Essential (primary) hypertension; Z20.822 Contact with and (suspected) exposure to COVID-19; J45.909 Unspecified asthma, uncomplicated; K59.00 Constipation, unspecified; F12.90 Cannabis use, unspecified, uncomplicated; F32.9 Major depressive disorder, single episode, unspecified; G89.29 Other chronic pain; R94.5 Abnormal results of liver function studies; Z87.442 Personal history of urinary calculi; Z79.899 Other long term (current) drug therapy
CPT/HCPCS: 36415; 74176; 74177; 76000; 76700; 80053; 81001; 82948; 83690; 83735; 85025; 85610; 87081; 87635; 93005; 94760; 96361; 96374; 96375; 99285; A4618; A7000; C1758; C1769; C1894; C2617; C9113; G0378; J0690; J1170; J1885; J2250; J2270; J2405; J2704; J3010; J7030; Q9967

== ENCOUNTER 2021-11-28 08:08 | Emergency (ER) | payer MEDICAID ==
[~2021-11-28] VITALS: Ht 165.1 cm; Wt 70.0 kg
[~2021-11-28 08:08] MED LIST changes: +ALBU8.5H17 IH; -ALBU8.5H8 IH; -BACI3.5O5 TOP; -BUDE9TAB2 PO; -CYCL-1 PO; +DIPH25CA83 PO; -IBUP-1986 PO; +LORA10TA7 PO; +MELA10TA2 PO; -ONDA4TAB6 PO; -ORPH100T2 PO
[2021-11-28 09:21] LABS: BASOPHILS % (AUTO) 0.7 % (0-1); EOSINOPHILS # (AUTO) 0.4 X10'3 (0-0.9); EOSINOPHILS % (AUTO) 5.1 % (0-6); HEMOGLOBIN 15.6 g/dl (14.0-17.9); LYMPHOCYTES % (AUTO) 27.2 % (21-51); MEAN CORPUSCULAR HEMOGLOBIN 29.1 PG (27.0-31.0); MEAN CORPUSCULAR HGB CONC 33.8 g/dL (33.0-36.5); MEAN PLATELET VOLUME 7.8 FL (7.4-10.4); MONOCYTES # (AUTO) 0.5 X10'3 (0-0.9); MONOCYTES % (AUTO) 6.8 % (2-12); NEUTROPHILS # (AUTO) 4.4 X10'3 (1.8-7.7); NEUTROPHILS % (AUTO) 60.2 % (42-75); PLATELET COUNT 288 X10'3 (140-440); RED BLOOD COUNT 5.34 X10'6 (4.70-6.10); WHITE BLOOD COUNT 7.4 X10'3 (4.5-11.0)
[2021-11-28 09:22] LABS: ALANINE AMINOTRANSFERASE 166 U/L (12-78); ALBUMIN 3.9 G/DL (3.4-5.0); ALBUMIN/GLOBULIN RATIO 1.1 (1.1-1.5); ALKALINE PHOSPHATASE 63 IU/L (46-116); ANION GAP 11 (8-16); ASPARTATE AMINO TRANSFERASE 55 U/L (10-37); BILIRUBIN,TOTAL 0.5 MG/DL (0.1-1.0); BLOOD UREA NITROGEN 14 MG/DL (7-18); BUN/CREATININE RATIO 14.7 (5.4-32.0); CALCIUM 8.8 MG/DL (8.5-10.1); CHLORIDE 102 MMOL/L (99-107); CREATININE 0.95 MG/DL (0.60-1.10); GLUCOSE 109 MG/DL (70-104); SODIUM 140 MMOL/L (135-145); TOTAL CARBON DIOXIDE 26.9 MMOL/L (24-32); TOTAL PROTEIN 7.6 G/DL (6.4-8.2); eGFR 84 ML/MIN
[2021-11-28 10:52] VITALS: BP 114/87
[2021-11-28] MEDS ORDERED: ketorolac trometh. 30mg/ml inj. IM ONE (10:55)
--- NOTE | 2021-11-28 12:15 | NUR ---
PT AMB WITH SLOW STEADY GAIT TO RESTROOM, AT BEDSIDE
== END 2021-11-28 12:59 | disposition home or self-care (01) ==
LOC: ER 08:08
DX: M54.42 Lumbago with sciatica, left side (principal); I10 Essential (primary) hypertension; G89.29 Other chronic pain; F12.90 Cannabis use, unspecified, uncomplicated
CPT/HCPCS: 36415; 71045; 72100; 80053; 83880; 84484; 85025; 93005; 96372; 99285; J1885

== ENCOUNTER 2022-08-12 17:44 | Emergency (ER) | payer MEDICAID ==
[~2022-08-12] VITALS: Ht 165.1 cm; Wt 80.0 kg
[2022-08-12] MEDS ORDERED: ketorolac tromethamine 15mg/ml inj. IM ONE (19:50)
[2022-08-12 21:21] VITALS: BP 135/102
[2022-08-13] MEDS ORDERED: ketorolac tromethamine 15mg/ml inj. IM ONE (00:50)
[2022-08-13] MEDS ORDERED: acetaminophen 325mg tablet PO ONE (00:50)
[2022-08-13 01:48] LABS: CLARITY,URINE SLIGHTLY CLOUDY (Clear); COLOR,URINE YELLOW (Yellow); GLUCOSE, URINE NEGATIVE (Neg); KETONES,URINE NEGATIVE (Neg); LEUKOCYTE ESTERASE ,URINE NEGATIVE (Neg); NITRITES, URINE NEGATIVE (Neg); OCCULT BLOOD,URINE NEGATIVE (Neg); PROTEIN,URINE NEGATIVE (Neg); UROBILINOGEN,URINE 0.2 E.U/dL (0.2-1.0)
--- NOTE | 2022-08-13 01:48 | NUR ---
general assessment reviewed
[2022-08-13 01:54] LABS: MUCUS STRANDS MANY /LPF (Neg); UA COLLECTION TYPE CLN CATCH MIDSTREAM
[2022-08-13 01:55] LABS: BACTERIA,URINE FEW /HPF (Neg); COARSE GRANULAR CAST 0-3 /LPF (NEGATIVE); SQUAMOUS EPITHELIAL CELL,UR FEW /LPF (FEW); WBC,URINE 0-4 /HPF (0-4)
[2022-08-13 01:56] LABS: AMORPHOUS PHOSPHATES 2+; TRANSITIONAL EPI CELLS,URINE FEW /HPF
[2022-08-13] MEDS ORDERED: cyclobenzaprine 10mg tablet PO ONE (02:05)
[2022-08-13] MEDS ORDERED: CYCL-1 PO (02:32)
== END 2022-08-13 02:55 | disposition home or self-care (01) ==
LOC: ER 17:45
DX: M54.50 Low back pain, unspecified (principal); G89.29 Other chronic pain; I10 Essential (primary) hypertension; I25.2 Old myocardial infarction; F32.9 Major depressive disorder, single episode, unspecified; F12.90 Cannabis use, unspecified, uncomplicated; Z87.442 Personal history of urinary calculi; Z72.89 Other problems related to lifestyle; Z79.899 Other long term (current) drug therapy
CPT/HCPCS: 81001; 96372; 99284; J1885

== ENCOUNTER 2023-05-20 11:05 | Emergency (ER) | payer MEDICAID ==
[~2023-05-20] VITALS: Ht 165.1 cm; Wt 75.0 kg
[~2023-05-20 11:05] MED LIST changes: +CYCL-1 PO
[2023-05-20 11:53] LABS: BASOPHILS # (AUTO) 0.1 X10'3 (0-0.2); EOSINOPHILS # (AUTO) 0.2 X10'3 (0-0.9); EOSINOPHILS % (AUTO) 2.4 % (0-6); HEMATOCRIT 49.3 % (42.0-52.0); HEMOGLOBIN 16.7 g/dl (14.0-17.9); LYMPHOCYTES # (AUTO) 1.9 X10'3 (1.1-4.8); LYMPHOCYTES % (AUTO) 24.5 % (21-51); MEAN CORPUSCULAR HEMOGLOBIN 30.2 PG (27.0-31.0); MEAN CORPUSCULAR HGB CONC 33.9 g/dL (33.0-36.5); MEAN CORPUSCULAR VOLUME 89.2 FL (78-98); MEAN PLATELET VOLUME 7.9 FL (7.4-10.4); MONOCYTES # (AUTO) 0.6 X10'3 (0-0.9); MONOCYTES % (AUTO) 7.1 % (2-12); NEUTROPHILS # (AUTO) 5.1 X10'3 (1.8-7.7); PLATELET COUNT 284 X10'3 (140-440); RED BLOOD COUNT 5.53 X10'6 (4.70-6.10); RED CELL DISTRIBUTION WIDTH 13.4 % (11.5-14.5); WHITE BLOOD COUNT 7.9 X10'3 (4.5-11.0)
[2023-05-20 12:16] LABS: ALANINE AMINOTRANSFERASE 225 U/L (12-78); ALBUMIN 4.8 G/DL (3.4-5.0); ALBUMIN/GLOBULIN RATIO 1.3 (1.1-1.5); ALKALINE PHOSPHATASE 64 IU/L (46-116); ANION GAP 11 (8-16); ASPARTATE AMINO TRANSFERASE 70 U/L (10-37); BILIRUBIN,TOTAL 0.9 MG/DL (0.1-1.0); BLOOD UREA NITROGEN 15 MG/DL (7-18); BUN/CREATININE RATIO 14.7 (10.0-20.0); CALCIUM 9.3 MG/DL (8.5-10.1); CHLORIDE 101 MMOL/L (99-107); CREATININE 1.02 MG/DL (0.60-1.10); GLUCOSE 115 MG/DL (70-104); POTASSIUM 3.9 MMOL/L (3.5-5.1); SODIUM 136 MMOL/L (135-145); TOTAL CARBON DIOXIDE 24.4 MMOL/L (24-32); TOTAL PROTEIN 8.4 G/DL (6.4-8.2); eCRCL 74 ML/MIN; eGFR 77 ML/MIN
[2023-05-20 12:30] LABS: PRO BRAIN NATRIURETIC PEPTIDE < 30 PG/ML (0-125)
[2023-05-20] MEDS ORDERED: ketorolac trometh inj. 60 MG/2 ML VIAL IM ONE (13:10)
[2023-05-20] MEDS ORDERED: diazepam inj 5 MG/ML inj. IM ONE (13:10)
[2023-05-20] MEDS ORDERED: CYCL-1 PO (13:11)
[2023-05-20] MEDS ORDERED: NAPR-56 PO (13:11)
[2023-05-20 13:38] VITALS: BP 147/97; PULSE 84; RESP 18; TEMP 98.2; O2SAT 98
== END 2023-05-20 13:45 | disposition home or self-care (01) ==
LOC: ER 11:05
DX: S39.012A Strain of muscle, fascia and tendon of lower back, initial encounter (principal); R05.9 Cough, unspecified; R07.9 Chest pain, unspecified; G89.29 Other chronic pain; M54.9 Dorsalgia, unspecified; F32.A Depression, unspecified; I11.0 Hypertensive heart disease with heart failure; F12.10 Cannabis abuse, uncomplicated; Z79.899 Other long term (current) drug therapy; X58.XXXA Exposure to other specified factors, initial encounter; Y93.89 Activity, other specified; Y92.89 Other specified places as the place of occurrence of the external cause; Y99.8 Other external cause status
CPT/HCPCS: 36415; 71045; 80053; 83880; 84484; 85025; 93005; 96372; 99285; J1885; J3360

== ENCOUNTER 2024-05-10 16:42 | Emergency (ER) | payer MEDICAID ==
[~2024-05-10] VITALS: Ht 165.1 cm; Wt 75.0 kg
[2024-05-10] MEDS ORDERED: MELO-100 PO (17:48)
[2024-05-10] MEDS: ondansetron 4mg rapidly disintigrating tab PO ONE (17:53)
[2024-05-10] MEDS: HYDROcodone/acetaminophen 5mg/325mg tablet PO ONE (17:53)
[2024-05-10] MEDS: dexamethasone sod phosphate 10mg/ml inj IM STA (17:53)
[2024-05-10] MEDS: ketorolac trometh 30MG/ML vial 30 MG/ML VIAL IM ONE (17:54)
[2024-05-10 18:18] VITALS: BP 122/78; PULSE 78; RESP 16; TEMP 97.8; O2SAT 98
== END 2024-05-10 18:19 | disposition home or self-care (01) ==
LOC: ER 16:42
DX: M25.561 Pain in right knee (principal); I10 Essential (primary) hypertension; I25.2 Old myocardial infarction; G89.29 Other chronic pain; F12.90 Cannabis use, unspecified, uncomplicated; Z79.899 Other long term (current) drug therapy
CPT/HCPCS: 73564; 96372; 99284; J1100; J1885